=== PATIENT | male | born 1985 | race Caucasian/White ===

== ENCOUNTER 2016-12-05 13:50 | Emergency (ER) | payer MEDICAID ==
--- NOTE | 2016-12-05 14:02 | Emergency Department Record ---
History of Present Illness - General Chief Complaint: Seizures Stated Complaint: SEIZURE Time Seen by Provider: 12/05/16 14:01 Source: Patient, Family Mode of Arrival: EMS Limitations: No limitations - History of Present Illness Initial Comments: The patient is here due to having 2 episodes of seizure activity at home 30 minutes ago. They were witnessed by family and were tonic clonic as described and occurred when the patient was sleeping on a Futon Bed at home. He did not fall or injure himself and there was no tongue biting or incontinence. The patient does have a hx of similar issues and has had multiple seizures like this and only while sleeping. He has seen a Neurologist about a year ago and was told he had seizures but was not started on any medicine. The patient denies any trauma, injury, recent illness or any drugs or new medicines. The patient does have a frontal ARCOS at this time which he has had in the past after the seizures. MD Complaint: Seizure Onset/Timin -: Minutes(s) Description of Episode: Loss of consciousness, Post-event confusion, Tonic- clonic movement Duration of Episode: 3 -: Minutes(s) Witnessed: Yes - by bystander Trauma: No Seizure History: Known seizure disorder Place: Home Possible Precipitating Event: None Associated Symptoms: Weakness Treatments Prior to Arrival: None - Related Data Home Medications Medication Instructions Recorded Confirmed Last Taken No Home Med [NO HOME MEDS] 12/05/16 12/05/16 Unknown Allergies Allergy/AdvReac Type Severity Reaction Status Date / Time No Known Drug Allergies Allergy Verified 12/05/16 14:00 Travel Screening - Travel/Exposure Within Last 30 Days Have you traveled within the last 30 days?: No Review of Systems Constitutional: Denies: Chills, Fever, Malaise Eyes: Denies: Eye discharge ENT: Denies: Congestion Respiratory: Denies: Cough, Dyspnea Cardiovascular: Denies: Arrhythmia, Chest pain Past Medical History - SOCIAL HISTORY Smoking Status: Current every day smoker Alcohol Use: None Drug Use: None - RESPIRATORY Hx Respiratory Disorders: No - CARDIOVASCULAR Hx Cardio Disorders: No - NEURO Hx Neuro Disorders: Yes Hx Seizures: Yes (started age 30) - GI Hx GI Disorders: No - Hx Genitourinary Disorders: No - ENDOCRINE Hx Endocrine Disorders: No - MUSCULOSKELETAL Hx Musculoskeletal Disorders: No - PSYCH Hx Psych Problems: No - HEMATOLOGY/ONCOLOGY Hx Hematology/Oncology Disorders: No Family Medical History Any Significant Family History?: Yes Family Hx Comment (NOT TO BE USED IN PLACE OF ITEMS BELOW): Aunt-seizures. Cousin-seizures Hx Heart Disease: Father Physical Exam - General General Appearance: Alert, Oriented x3, Cooperative, No acute distress - Head Head exam: Atraumatic, Normocephalic, Normal inspection - Eye Eye exam: Normal appearance, PERRL - ENT ENT exam: Normal exam, Mucous membranes moist, Normal external ear exam, Normal orophraynx, TM's normal bilaterally Throat exam: Normal inspection. negative: Tonsillar erythema, Tonsillar exudate - Neck Neck exam: Normal inspection, Full ROM. negative: Tenderness - Respiratory Respiratory exam: Normal lung sounds bilaterally. negative: Respiratory distress - Cardiovascular Cardiovascular Exam: Regular rate, Normal rhythm, Normal heart sounds - GI/Abdominal GI/Abdominal exam: Soft, Normal bowel sounds. negative: Tenderness - Extremities Extremities exam: Normal inspection, Full ROM, Normal capillary refill. negative: Tenderness - Neurological Neurological exam: Alert, Oriented X3. negative: Motor sensory deficit - Psychiatric Psychiatric exam: negative: Agitated, Anxious, Depressed Course - Reevaluation(s) Reevaluation #1: The patient is doing well. He denies any new symptoms. He is resting comfortably but still has a ARCOS. 12/05/16 15:10 Reevaluation #2: The patient is doing better. There are no new issues or any new seizures. I did discuss the lab tests and CT. We are still waiting on the urine results. 12/05/16 16:19 Reevaluation #3: The patient is feeling much better and states his ARCOS has resolved. He is up walking and talking normally. He is answering all questions appropriately and does have proper decision making capacity. I explained to him due to the confusion as to what is causing this issue I do recommend staying in the hospital. The patient is refusing. I explained to him by NOT staying he could go home and have another seizure and injure himself or others which could lead to disability and . The patient understands and is still refusing. I did also explain to him that he is not allowed to drive a motor vehicle while having active seizure activity. The patient is to see his [facility] Neurologist CRISTIANO. 12/05/16 16:39 12/05/16 16:42 Medical Decision Making - Data Complexity MDM Data: Labs Ordered and/or Reviewed, X-Ray Ordered and/or Reviewed, EKG Ordered and/or Reviewed - Lab Data Result diagrams: 12/05/16 13:50 12/05/16 14:18 - EKG Data -: EKG Interpreted by Me EKG: No Acute Changes, Normal EKG (Early Repolarization V1-6.) - Radiology Data Radiology results: Report reviewed (Head CT: Neg) Disposition Disposition: Discharge Clinical Impression: Seizure Disposition: Against Medical Advice Condition: (1) Good Instructions: Recurrent Seizures Adult (ED) Additional Instructions: Please see your [facility] Neurologist CRISTIANO for further evaluation and possibly to have medicine started. Please DO NOT DRIVE until given the OK by Neurology. Please return to the ER for any recurrent seizures, confusion or any new problems. Forms: Patient Portal Access Time of Disposition: 16:38
[2016-12-05] MEDS ORDERED: IBUPROFEN 600 MG TABLET PO ONE (14:08)
[2016-12-05] MEDS ORDERED: LORAZEPAM 2 MG/ML VIAL IV ONE (14:08)
[2016-12-05] MEDS ORDERED: 0.9 % SODIUM CHLORIDE 1,000 ML BAG IV ONE (14:31)
[2016-12-05 14:44] LABS: HEMATOCRIT 42.1 % (42.0-52.0); HEMOGLOBIN 14.4 gm/dl (14.0-18.0); MEAN CELL VOLUME 94.6 fl (81-97); MEAN CORPUSCULAR HEMOGLOBIN 32.4 pg (27-33); MEAN CORPUSCULAR HGB CONC 34.2 g/dl (32-36); MEAN PLATELET VOLUME 11.7 fl (7.4-10.4); PLATELET COUNT 330 K/uL (130-400); RED BLOOD COUNT 4.45 M/uL (4.40-5.70); RED CELL DISTRIBUTION WIDTH 13.2 % (11.5-14.5); WHITE BLOOD COUNT W/O DIFF 11.1 K/uL (4.2-12.2)
[2016-12-05 14:53] LABS: PLATELET ESTIMATE NORMAL (NORMAL)
[2016-12-05 14:56] LABS: ACETAMINOPHEN < 10.0 ug/mL (10.0-30.0); ALB/GLOB RATIO 1.5 (1.1-1.8); ALBUMIN 4.8 gm/dL (3.5-5.0); ALKALINE PHOSPHATASE 79 U/L (38-126); ALT/SGPT 55 U/L (21-72); ANION GAP 19.8 (7-16); AST/SGOT 30 U/L (17-59); BLOOD UREA NITROGEN 9 mg/dL (9-20); CARBON DIOXIDE 21.2 mmol/L (22-30); EST GLOMERULAR FILTRATION RATE > 60 ml/min; GLUCOSE,RANDOM 114 mg/dL (70-110); SALICYLATE < 1.0 mg/dL (2.8-20.0); TOTAL PROTEIN 7.9 gm/dL (6.3-8.2)
[2016-12-05] MEDS ORDERED: KETOROLAC 30 MG/ML VIAL IVP ONE (15:06)
[2016-12-05 16:18] LABS: URINE APPEARANCE CLEAR; URINE BILIRUBIN NEGATIVE (NEGATIVE); URINE BLOOD NEGATIVE (NEGATIVE); URINE COLOR YELLOW; URINE GLUCOSE (UA) NEGATIVE (NEGATIVE); URINE KETONE NEGATIVE (NEGATIVE); URINE LEUKOCYTE ESTERASE NEGATIVE (NEGATIVE); URINE NITRITE NEGATIVE (NEGATIVE); URINE PROTEIN NEGATIVE (NEGATIVE); URINE UROBILINOGEN 0.2 E.U./dL (0.20 - 1.00)
[2016-12-05 16:23] LABS: AMPHETAMINE SCREEN URINE NOT DETECTED; BARBITURATE SCREEN URINE NOT DETECTED; BENZODIAZEPINE SCREEN URINE NOT DETECTED; COCAINE SCREEN URINE NOT DETECTED; METHADONE SCREEN URINE NOT DETECTED; METHAMPHETAMINE SCREEN NOT DETECTED; OPIATE SCREEN URINE NOT DETECTED; OXYCODONE SCREEN URINE NOT DETECTED; PHENCYCLIDINE SCREEN URINE NOT DETECTED; PROPOXYPHENE SCREEN URINE NOT DETECTED; THC SCREEN URINE DETECTED; TRICYCLIC ANTIDEPRESSANT SCRN NOT DETECTED
--- NOTE | 2016-12-09 08:25 | CT SCAN REPORT ---
EXAM: CT OF THE BRAIN WITHOUT CONTRAST HISTORY: SEIZURES. TECHNIQUE: CT of the brain without contrast was obtained. Comparison: Prior CT of the brain 05/28/13. FINDINGS: The globes are intact. The paranasal sinuses and mastoid air cells are unremarkable. No displaced or depressed skull fracture. No intra or extraaxial hemorrhage. CT is limited for evaluation of acute infarct. No CT evidence for large or territorial acute infarct. No mass or midline shift. IMPRESSION: NEGATIVE CT OF THE BRAIN EXAMINATION. JOB NUMBER: [id number] [facility]
== END 2016-12-05 16:51 | disposition left against medical advice (07) ==
LOC: ER 13:50
DX: G40.409 Other generalized epilepsy and epileptic syndromes, not intractable, without status epilepticus (principal); R51 Headache; R41.0 Disorientation, unspecified
CPT/HCPCS: 99284 ×2; 96374; 96375; 96361; 80053; 81003; 85027; 70450; 93005; 93010; G0477; G0480 ×2; J1885; J2060; 80329; J7030

== ENCOUNTER 2017-01-11 08:26 | Emergency (ER) | payer MEDICAID ==
--- NOTE | 2017-01-11 09:11 | Emergency Department Record ---
History of Present Illness - General Chief complaint: Rash Stated complaint: RASH Time Seen by Provider: 01/11/17 08:53 Source: Patient Mode of Arrival: Ambulatory Limitations: No limitations - History of Present Illness Initial comments: pt states his girlfriend has been exposed to herpes and now he has a rash that saleem. complaint: Rash Onset/Timin -: Days(s) Location: Genitals Quality: Burning Consistency: Constant Improves with: None Associated symptoms: Denies other symptoms Treatments Prior to Arrival: OTC topical medication - Related Data Previous Rx's Medication Instructions Recorded Acyclovir 400 mg PO TID #30 tablet 01/11/17 Allergies Allergy/AdvReac Type Severity Reaction Status Date / Time No Known Drug Allergies Allergy Verified 12/05/16 14:00 Travel Screening - Travel/Exposure Within Last 30 Days Have you traveled within the last 30 days?: No - Travel/Exposure Within Last Year Have you traveled outside the [place] in the last year?: No - Additonal Travel Details Have you been exposed to anyone with a communicable illness?: No - Travel Symptoms Symptom Screening: None Review of Systems Reviewed: No additional complaints except as noted below Constitutional: Reports: As per HPI. Denies: Chills, Fever, Malaise, Night sweats, Weakness, Weight change Eyes: Reports: As per HPI. Denies: Eye discharge, Eye pain, Photophobia, Vision change ENT: Reports: As per HPI. Denies: Congestion, Dental pain, Ear pain, Epistaxis , Hearing loss, Throat pain Respiratory: Reports: As per HPI. Denies: Cough, Dyspnea, Hemoptysis, Stridor, Wheezes Cardiovascular: Reports: As per HPI. Denies: Arrhythmia, Chest pain, Dyspnea on exertion, Edema, Murmurs, Orthopnea, Palpitations, Paroxysmal nocturnal dyspnea, Rheumatic Fever, Syncope Endocrine: Reports: As per HPI. Denies: Fatigue, Heat or cold intolerance, Polydipsia, Polyuria Gastrointestinal: Reports: As per HPI. Denies: Abdominal pain, Constipation, Diarrhea, Hematemesis, Hematochezia, Melena, Nausea, Vomiting Genitourinary: Reports: As per HPI. Denies: Dysuria, Frequency, Hematuria, Incontinence, Retention, Testicular pain, Testicular mass, Urgency Musculoskeletal: Reports: As per HPI. Denies: Arthralgia, Back pain, Gout, Joint swelling, Myalgia, Neck pain Skin: Reports: As per HPI. Denies: Bruising, Change in color, Change in hair/ nails, Lesions, Pruritus, Rash Neurological: Reports: As per HPI. Denies: Abnormal gait, Confusion, Headache, Numbness, Paresthesias, Seizure, Tingling, Tremors, Vertigo, Weakness Psychiatric: Reports: As per HPI. Denies: Anxiety, Auditory hallucinations, Depression, Homicidal thoughts, Suicidal thoughts, Visual hallucinations Hematological/Lymphatic: Reports: As per HPI. Denies: Anemia, Blood Clots, Easy bleeding, Easy bruising, Swollen glands Past Medical History - SOCIAL HISTORY Smoking Status: Current every day smoker Alcohol Use: Occassional Drug Use: Occassional Drug Use Detail:: Marijuana - RESPIRATORY Hx Respiratory Disorders: No - CARDIOVASCULAR Hx Cardio Disorders: No - NEURO Hx Neuro Disorders: Yes Hx Seizures: Yes (started age 30) - GI Hx GI Disorders: No - Hx Genitourinary Disorders: No - ENDOCRINE Hx Endocrine Disorders: No - MUSCULOSKELETAL Hx Musculoskeletal Disorders: No - PSYCH Hx Psych Problems: No - HEMATOLOGY/ONCOLOGY Hx Hematology/Oncology Disorders: No Family Medical History Any Significant Family History?: No Family Hx Comment (NOT TO BE USED IN PLACE OF ITEMS BELOW): Aunt-seizures. Cousin-seizures Hx Heart Disease: Father Physical Exam - General General Appearance: Alert, Oriented x3, Cooperative, Mild distress - Head Head exam: Normal inspection - Eye Eye exam: Normal appearance, PERRL, EOMI Pupils: Normal accommodation - ENT ENT exam: Normal exam, Mucous membranes moist, Normal external ear exam, Normal orophraynx, TM's normal bilaterally Ear exam: Normal external inspection. negative: External canal tenderness Nasal Exam: Normal inspection. negative: Discharge, Sinus tenderness Mouth exam: Normal external inspection, Tongue normal Teeth exam: Normal inspection. negative: Dental caries Throat exam: Normal inspection. negative: Tonsillar erythema, Tonsillar exudate - Neck Neck exam: Normal inspection, Full ROM. negative: Tenderness - Respiratory Respiratory exam: Normal lung sounds bilaterally. negative: Respiratory distress - Cardiovascular Cardiovascular Exam: Regular rate, Normal rhythm, Normal heart sounds - GI/Abdominal GI/Abdominal exam: Soft, Normal bowel sounds. negative: Tenderness - Rectal Rectal exam: Deferred - exam: Deferred - Extremities Extremities exam: Normal inspection, Full ROM, Normal capillary refill. negative: Tenderness - Back Back exam: Reports: Normal inspection, Full ROM. Denies: Muscle spasm, Rash noted, Tenderness - Neurological Neurological exam: Alert, CN II-XII intact, Normal gait, Oriented X3 - Psychiatric Psychiatric exam: Normal affect, Normal mood - Skin Skin exam: Dry, Intact, Normal color, Rash, Warm Distribution of rash: Genitals, Other (at base of penis) Description of rash: Erythematous, Tenderness, Other (no distict vesicles but suspicious for early herpes) Course Vital Signs 01/11/17 08:35 Temperature 98.0 F Pulse Rate [ 84 Pulse Ox Probe] Respiratory 16 Rate Blood Pressure 140/95 [Left Arm] Pulse Ox 97 - Reevaluation(s) Reevaluation #1: 01/11/17 09:09 culture obtained for herpes. pt told repeat culture might be needed Disposition Disposition: Discharge Clinical Impression: Rash and nonspecific skin eruption Disposition: Home, Self-Care Condition: (1) Good Instructions: Acute Rash (ED), Genital Herpes Simplex (ED) Additional Instructions: follow up with family doctor. return sooner if worse. use condoms Prescriptions: Acyclovir 400 mg PO TID #30 tablet Forms: Patient Portal Access
== END 2017-01-11 09:25 | disposition home or self-care (01) ==
LOC: ER 08:26
DX: R21 Rash and other nonspecific skin eruption (principal)
CPT/HCPCS: 99283